=== PATIENT | female | born 1965 | race Caucasian/White ===

== ENCOUNTER 2020-06-07 09:57 | Outpatient (CLI) | payer BC ==
--- NOTE | 2020-06-07 10:12 | RAD ---
EXAM: 4 views of the left knee HISTORY: Knee pain and swelling COMPARISON: None FINDINGS: No knee effusion is seen. There is no evidence of acute fracture or dislocation. Moderate t ricompartmental joint space and osteophyte formation is seen, greatest in the medial femorotibial compartment. No soft tissue swelling is seen. IMPRESSION: Moderate left knee osteoarthritis
== END 2020-06-07 09:58 | disposition home or self-care (01) ==
LOC: NAV RAD 09:57
PROVIDERS: ATTEND Family Medicine
DX: M25.562 Pain in left knee (principal); M17.12 Unilateral primary osteoarthritis, left knee

== ENCOUNTER 2022-12-04 11:24 | Outpatient (CLI) | payer OTHER | END 2022-12-04 11:25 | disposition home or self-care (01) | LOC: NAV RAD 11:24 | PROVIDERS: ATTEND Family Medicine | DX: J20.9 Acute bronchitis, unspecified (principal); J42 Unspecified chronic bronchitis | CPT/HCPCS: 71046 ==

== ENCOUNTER 2023-07-11 16:02 | Outpatient (CLI) | payer OTHER | END 2023-07-11 16:03 | disposition home or self-care (01) | LOC: NAV RAD 16:02 | PROVIDERS: ATTEND Family Medicine | DX: S83.412A Sprain of medial collateral ligament of left knee, initial encounter (principal); M17.12 Unilateral primary osteoarthritis, left knee ==